=== PATIENT | female | born 1985 | race Hispanic/Latino ===

== ENCOUNTER → 2022-04-20 | Outpatient (CLI) | payer OTHER, BC | END | disposition home or self-care (01) | LOC: RAH 15:15 | PROVIDERS: ATTEND Internal Medicine Cardiovascular Disease | DX: I34.0 Nonrheumatic mitral (valve) insufficiency (principal); R55 Syncope and collapse; E66.9 Obesity, unspecified; I10 Essential (primary) hypertension | CPT/HCPCS: 93306 ==

== ENCOUNTER → 2022-04-22 | Outpatient (CLI) | payer OTHER, BC ==
[~2022-04-22] MED LIST: FLUT16H NASAL; LORA10TA7 PO
[2022-04-22 12:49] LABS: CHOLESTEROL 148 mg/dL (<200); HDL CHOLESTEROL 55 mg/dL (35-85); LDL DIRECT 81 mg/dL (0-99); TRIGLYCERIDES 74 mg/dL (30-200)
== END | disposition home or self-care (01) ==
LOC: LAB 11:12
PROVIDERS: ATTEND Internal Medicine Cardiovascular Disease
DX: Z13.220 Encounter for screening for lipoid disorders (principal)
CPT/HCPCS: 36415; 80061

== ENCOUNTER 2022-04-30 10:52 | Emergency (ER) | payer OTHER, BC ==
[~2022-04-30] VITALS: Ht 152.4 cm; Wt 69.9 kg
[2022-04-30] MEDS ORDERED: 0.9%NACL 1000ML 1,000 ML IV ONE (11:30)
[2022-04-30 11:41] LABS: BASOPHILS % (AUTO) 0.9 % (0.0-5.0); HEMATOCRIT 39.3 % (36-48); LYMPHOCYTES % (AUTO) 26.8 % (21.0-51.0); MEAN CORPUSCULAR HEMOGLOBIN 28.7 pg (27.0-33.0); MEAN CORPUSCULAR HGB CONC 33.3 g/dL (32.0-36.0); MEAN CORPUSCULAR VOLUME 86.2 fL (79-99); MONOCYTES % (AUTO) 3.1 % (3.0-13.0); NEUTROPHILS % (AUTO) 65.8 % (40.0-77.0); PLATELET COUNT (AUTO) 375 K/uL (130-400); RED BLOOD CELL COUNT(AUTO) 4.56 MIL/uL (4.00-5.50); RED CELL DISTRIBUTION WIDTH 12.6 % (11.0-15.5); WHITE BLOOD COUNT (AUTO) 11.6 K/uL (4.8-10.8)
[2022-04-30] MEDS ORDERED: ACETAMINOPHEN 325 MG TAB PO ONE (12:30)
[2022-04-30] MEDS ORDERED: ACETAMINOPHEN 325 MG TAB ONE (12:36)
[2022-04-30 12:40] LABS: CREATININE 0.8 mg/dL (0.5-1.5); POTASSIUM 3.8 mmol/L (3.5-5.1)
[2022-04-30 12:53] LABS: ALBUMIN 4.1 g/dL (3.5-5.0); THYROID STIMULATING HORMONE 2.7 uIU/mL (0.36-3.74); TOTAL PROTEIN, SERUM 8.7 g/dL (6.0-8.3)
[2022-04-30 13:40] LABS: HCG,QUALITATIVE URINE NEGATIVE (NEGATIVE)
[2022-04-30 14:17] LABS: APPEARANCE,URINE CLEAR (CLEAR); BILIRUBIN,URINE NEGATIVE (NEGATIVE); COLOR,URINE LIGHT-YELLOW (YELLOW); GLUCOSE, URINE (UA) NEGATIVE (NEGATIVE); KETONES,URINE 5 mg/dL (NEGATIVE); LEUKOCYTE ESTERASE ,URINE NEGATIVE Leu/uL (NEGATIVE); NITRATE,URINE NEGATIVE (NEGATIVE); PROTEIN,URINE NEGATIVE (NEGATIVE); UROBILINOGEN,URINE 0.2 mg/dL (0.2-1.0)
[2022-04-30 14:35] LABS: MUCUS,URINE RARE LPF (None Seen); OTHER CASTS, URINE 1 /LPF (None Seen); SQUAMOUS EPITHELIAL CELL,UR RARE /HPF (0-2)
[2022-04-30] MEDS ORDERED: FLUT16H NASAL (15:49)
[2022-04-30] MEDS ORDERED: LORA10TA7 PO (15:49)
[2022-04-30] MEDS ORDERED: ONDANSETRON 4MG INJ IVP ONE (16:00)
[2022-04-30] MEDS ORDERED: DEXAMETHASONE SOD PHOSPHATE 4 MG/ML 1ML VIAL IV ONE (16:00)
[2022-04-30] MEDS ORDERED: DEXAMETHASONE 4 MG TAB ONE (16:20)
[2022-04-30] MEDS ORDERED: ONDANSETRON ODT 4MG TAB ONE (16:20)
[2022-04-30 16:36] VITALS: BP 128/74
== END 2022-04-30 16:30 | disposition home or self-care (01) ==
LOC: EDH 10:52
DX: J01.90 Acute sinusitis, unspecified (principal); I10 Essential (primary) hypertension
CPT/HCPCS: 99285; 96360; 70450; 84443; 84484; 80053; 85025; 81001; 81025; 36415; 93005; J7030; J8540